=== PATIENT | female | born 1940 | race Native Hawaiian/Other Pacific Islander ===

== ENCOUNTER 2020-07-24 09:26 | Outpatient (CLI) | payer OTHER ==
[~2020-07-24] VITALS: Ht 160 cm; Wt 78.9 kg
== END 2020-07-24 22:04 | disposition home or self-care (01) ==
LOC: NM 09:26
PROVIDERS: ATTEND Specialist
DX: R07.89 Other chest pain (principal); Z91.89 Other specified personal risk factors, not elsewhere classified
CPT/HCPCS: A9500; J2785

== ENCOUNTER 2020-10-10 12:39 | Outpatient (CLI) | payer OTHER | END 2020-10-10 19:01 | disposition home or self-care (01) | LOC: RESP 12:39 | PROVIDERS: ATTEND Internal Medicine Sleep Medicine | DX: J45.909 Unspecified asthma, uncomplicated (principal) ==